=== PATIENT | male | born 1955 | race Caucasian/White ===

== ENCOUNTER 2022-09-14 19:00 | Emergency (ER) | payer OTHER ==
[~2022-09-14] VITALS: Ht 172.7 cm; Wt 79.4 kg
[2022-09-14] MEDS ORDERED: ETAN50SY SQ (19:28)
[2022-09-14] MEDS ORDERED: fentanyl (19:28)
[2022-09-14] MEDS ORDERED: IPRA12.9 IH (19:28)
[2022-09-14] MEDS ORDERED: MIRT-121 PO (19:28)
[2022-09-14] MEDS ORDERED: ASPI81TA31 PO (19:28)
[2022-09-14] MEDS ORDERED: ATOR10TA PO (19:28)
[2022-09-14] MEDS ORDERED: ROSU5TAB PO (19:28)
[2022-09-14] MEDS ORDERED: FOLI1TAB94 PO (19:28)
[2022-09-14] MEDS ORDERED: DULO20CA PO (19:28)
[2022-09-14] MEDS ORDERED: IV NORMAL SALINE 1000 ML BAG IV ONE (19:30)
[2022-09-14 20:01] LABS: HEMATOCRIT 38.7 % (36.7-47.1); MEAN CORPUSCULAR HEMOGLOBIN 32.5 uug (23.8-33.4); MEAN CORPUSCULAR VOLUME 96.3 fL (73.0-96.2); PLATELET COUNT (AUTO) 203 K/uL (152-348)
[2022-09-14 20:10] LABS: CARBON DIOXIDE 27 mmol/L (21-32); CHLORIDE 103 mmol/L (98-107); CREATININE 0.8 mg/dL (0.6-1.3); GLUCOSE 105 mg/dL (74-106); POTASSIUM 3.9 mmol/L (3.5-5.1); UREA NITROGEN, BLOOD 14 mg/dL (7-18)
[2022-09-14 20:19] LABS: ALANINE AMINOTRANSFERASE 19 U/L (16-63); ALKALINE PHOSPHATASE 65 U/L (50-136); ASPARTATE AMINOTRANSFERASE 14 U/L (15-37); BILIRUBIN,DIRECT 0.1 mg/dL (0.0-0.2); BILIRUBIN,TOTAL 0.5 mg/dL (0.2-1.0); TOTAL PROTEIN, SERUM 7.4 g/dL (6.4-8.2)
[2022-09-15 01:46] VITALS: BP 128/67
== END 2022-09-15 02:00 ==
LOC: ER 19:04
DX: R42 Dizziness and giddiness (principal); R00.0 Tachycardia, unspecified; Z86.73 Personal history of transient ischemic attack (TIA), and cerebral infarction without residual deficits; Z87.442 Personal history of urinary calculi; M06.9 Rheumatoid arthritis, unspecified; G89.29 Other chronic pain; J45.909 Unspecified asthma, uncomplicated; G62.9 Polyneuropathy, unspecified; Z79.82 Long term (current) use of aspirin; Z79.899 Other long term (current) drug therapy
CPT/HCPCS: 99285; 96360; 71045; 80076; 80048; 85025; 84484 ×2; 36415; 93005; J7040; A4663